=== PATIENT | male | born 1945 | race Caucasian/White ===

== ENCOUNTER 2024-04-16 13:58 | Emergency (ER) | payer OTHER ==
[~2024-04-16] VITALS: Ht 175.3 cm; Wt 72.0 kg
[2024-04-16 14:09] VITALS: O2SAT 100
[2024-04-16 14:21] VITALS: BP 113/63; PULSE 77; RESP 16; TEMP 36.9; O2SAT 100
== END 2024-04-16 15:33 | disposition home or self-care (01) ==
LOC: ER 13:58
DX: Z00.00 Encounter for general adult medical examination without abnormal findings (principal); E11.9 Type 2 diabetes mellitus without complications
CPT/HCPCS: 99281